=== PATIENT | male | born 1980 | race Caucasian/White ===

== ENCOUNTER 2017-06-11 21:34 | Emergency (ER) | payer OTHER ==
[~2017-06-11] VITALS: Ht 180.3 cm; Wt 113.9 kg
[2017-06-11 21:39] VITALS: BP 140/71; PULSE 85; RESP 18; TEMP 99; O2SAT 98
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
[2017-06-11] MEDS ORDERED: IBUP1TAB7 PO (23:08)
[2017-06-11] MEDS ORDERED: PERC5TAB12 PO (23:08)
[2017-06-11] MEDS ORDERED: ZOFR4TAB3 SL (23:08)
[2017-06-11 23:30] VITALS: BP 145/88
== END 2017-06-11 23:38 | disposition home or self-care (01) ==
LOC: PHED 21:34
DX: S42.021A Displaced fracture of shaft of right clavicle, initial encounter for closed fracture (principal); V18.0XXA Pedal cycle driver injured in noncollision transport accident in nontraffic accident, initial encounter; Y93.55 Activity, bike riding; Y92.39 Other specified sports and athletic area as the place of occurrence of the external cause
CPT/HCPCS: 29240; 70450; 71010; 72125; 73000; 73030